=== PATIENT | female | born 2000 | race Two or more races ===

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

== ENCOUNTER 2024-02-21 00:04 | Emergency (ER) | payer MEDICAID, SELFPAY ==
[2024-02-21 00:23] VITALS: BP 111/74; PULSE 123; RESP 18; TEMP 37.7; O2SAT 99; BMI 19.0
--- NOTE | 2024-02-21 00:33 | EDNOTE_ITS ---
Upper Respiratory Inf. RME/HPI General Chief Complaint: Dental/Oral/Throat Stated Complaint: sore throat, body aches Time Seen by Provider: 02/21/24 00:27 Arrival date/time: 02/21/24 00:04 23F with no significant PMH presents to ED with 1 day of cough, sore throat, and body aches. Limitations: no limitations Related Data Home Medications ?Medication ?Instructions ?Recorded ?Confirmed loratadine 10 mg tablet 10 mg PO QDAY 01/19/19 07/02/20 Previous Rx's ?Medication ?Instructions ?Recorded cephalexin 500 mg capsule (Keflex) 500 mg PO BID #20 caps 01/19/19 ibuprofen 400 mg tablet 400 mg PO Q6H PRN pain #14 tabs 12/18/20 magnesium citrate 120 ml PO BID PRN constipation 12/18/20 #296 mL dicyclomine 20 mg tablet 20 mg PO BID #14 tabs 09/06/22 simethicone 125 mg capsule 125 mg PO BID PRN abdominal 09/06/22 distention #20 caps Allergies Allergy/AdvReac Type Severity Reaction Status Date / Time No Known Allergies Allergy Verified 09/06/22 02:00 Review of Systems Review of Systems Systems Reviewed: All systems reviewed, normal except as documented Constitutional Constitutional: Reports system reviewed and no additional complaints, except as documented, Reports as per HPI, Reports body ache(s), Denies fever(s) and Denies headache(s) ENT Ears, Nose, Mouth, and Throat: Reports as per HPI, Denies disequilibrium, Denies headache(s) and Reports sore throat Cardiovascular Cardiovascular: Reports system reviewed and no additional complaints, except as documented, Denies chest pain and Denies dyspnea Respiratory Respiratory: Reports system reviewed and no additional complaints, except as documented, Reports as per HPI, Reports cough and Denies dyspnea Gastrointestinal Gastrointestinal: Reports system reviewed and no additional complaints, except as documented, Denies abdominal pain, Denies nausea and Denies vomiting Neurologic Neurologic: Reports system reviewed and no additional complaints, except as documented, Denies confusion, Denies disequilibrium and Denies headache(s) Psychiatric Psychiatric: Denies confusion Past Medical History Past Medical History CARDIAC: Negative Cardiac Disorders or Congestive Heart Failure RESPIRATORY: Negative Chronic Obstructive Pulmonary Disease (COPD) or Asthma GENITOURINARY: Negative Renal Disease ENDOCRINE: Negative Diabetes Mellitus Type 1 or Diabetes Mellitus Type 2 HEMATOLOGIC: Negative Sickle Cell Disease Social History SMOKING STATUS: Former smoker ED Exam General Limitations: Present no limitations General appearance: Present alert and in no apparent distress Head Head exam: Present atraumatic Eye Eye exam: Present normal appearance, PERRL and EOMI ENT ENT exam: Present normal exam, normal oropharynx and mucous membranes moist Neck Neck exam: Present normal inspection, full ROM and trachea midline Chest Chest inspection: Present normal inspection and symmetric chest wall rise Respiratory Respiratory exam: Present normal lung sounds bilaterally Cardiovascular Cardiovascular exam: Present regular rate, normal rhythm and normal heart sounds Abdominal Exam Abdominal exam: Present soft and normal bowel sounds Extremities Exam Extremities exam: Present normal inspection and full ROM Back Exam Back exam: Present normal inspection and full ROM Neurological Exam Neurological exam: Present alert, oriented X3 and CN II-XII intact Psychiatric Psychiatric exam: Present normal affect and normal mood Skin Skin exam: Present warm, dry, intact and normal color Course Quality Measures none Orders Category Date Time Status Bedside COVID-19 Antigen Test NOW Care 02/21/24 00:28 Active Bedside Influenza A&B Antigen Test NOW Care 02/21/24 00:28 Completed Strep A Rapid Stat Lab 02/21/24 00:56 Completed Vital Signs Vital signs: Vital Signs Temperature 99.9 F 02/21/24 00:23 Pulse Rate 123 H 02/21/24 00:23 Respiratory Rate 18 02/21/24 00:23 Blood Pressure 111/74 02/21/24 00:23 Pulse Oximetry (%) 99 02/21/24 00:23 Oxygen Delivery Method Room Air 02/21/24 00:23 O2 at 99% on RA and WNLs Upper Respiratory Infection MDM Narrative MDM Narrative:: 23F with no significant PMH presents to ED with 1 day of cough, sore throat, and body aches. Physical exam reveals clear ENT and lungs. Patient is afebrile, calm, and alert. Swabs neg. Likely viral URI. Patient data External records reviewed:: [facility] previous records Clinical information provided by:: patient Social determinants that could affect healthcare access:: none Patient has the following chronic illnesses:: none How is presenting disease/condition affected by chronic disease/condition?: no chronic disease Evaluation data The following diagnostics were reviewed and interpreted by me:: lab results Lab and/or radiology exams considered but not ordered:: ordered Interpretation Summary: above Medications / Prescriptions Medications or Prescriptions considered but not ordered:: not ordered Medication administrations:: n/a Consultations Consultation(s) initiated? (list below): No Diagnosis Upper Respiratory Differential Diagnosis: upper respiratory infection, croup, otitis media, sinusitis, viral infection, bronchitis, influenza and pharyngitis Most likely diagnosis given after review of the tests above:: URI Admission Indicated Admission indicated?: not indicated Admission Request Was there a request for admission?: No Disposition Plan Disposition Plan: Discharge Discharge Attestation Discharge Attestation: The patient and all family members were given an opportunity to ask questions and understood the discharge instructions. Discharge instructions specifically effects, indications for sooner follow up or return to the emergency department, and the expected course of current diagnosis. Patient condition: Stable Discharge Plan Plan Patient Disposition: HOME (Self Care) Disposition Comment: Stable Prescriptions/Referrals Prescriptions/Med Rec: No Action loratadine 10 mg Tablet 10 mg PO QDAY cephalexin [Keflex] 500 mg capsule 500 mg PO BID Qty: 20 0RF ibuprofen 400 mg tablet 400 mg PO Q6H PRN (Reason: pain) Qty: 14 0RF magnesium citrate Solution 120 ml PO BID PRN (Reason: constipation) Qty: 296 0RF dicyclomine 20 mg tablet 20 mg PO BID Qty: 14 0RF simethicone 125 mg capsule 125 mg PO BID PRN (Reason: abdominal distention) Qty: 20 0RF Rx Instructions: administer after meals Problem List Clinical Impression: URI (upper respiratory infection) Patient/Caregiver Discharge Instructions Education Materials: ED URI, Viral, No Abx (Adult) Additional Instructions: Please follow-up with PCP within 24-48 hours and return immediately if symptoms worsen. Ibuprofen/Tylenol can be used simultaneously for greater fever/pain control. Benadryl is good for cough, congestion, and sleep. Print Language: Sinhala Stand Alone Forms: Patient Portal Info Letter PA/DECOMMISSIONING WELL SITE MANAGER Supervising Physician PA/DECOMMISSIONING WELL SITE MANAGER Supervising Physician: Dr. Morris
[2024-02-21 01:21] LABS: Strep A Rapid Negative (Negative)
== END 2024-02-21 01:34 | disposition home or self-care (01) ==
LOC: SERX 01:44
PROVIDERS: Physician Assistant; Emergency Provider Emergency Medicine
DX: J06.9 Acute upper respiratory infection, unspecified (principal)
CPT/HCPCS: 87400; 87651; 87811; 99283